=== PATIENT | female | born 1975 | race Caucasian/White ===

== ENCOUNTER 2021-11-29 13:07 | Emergency (ER) | payer OTHER ==
[~2021-11-29] VITALS: Ht 152.4 cm; Wt 63.6 kg
[2021-11-29] MEDS ORDERED: ACET-2247 PO (13:24)
[2021-11-29] MEDS ORDERED: RISP1TAB48 PO (13:24)
[2021-11-29] MEDS ORDERED: DOCU-385 PO (13:24)
[2021-11-29] MEDS ORDERED: LORA10TA7 PO (13:24)
[2021-11-29] MEDS ORDERED: LEVE500T20 PO (13:24)
[2021-11-29] MEDS ORDERED: BENZ1TAB96 PO (13:24)
[2021-11-29] MEDS ORDERED: QUET25TA PO (13:24)
[2021-11-29] MEDS ORDERED: CARB100 PO (13:24)
[2021-11-29] MEDS ORDERED: MULT-1366 PO (13:24)
[2021-11-29] MEDS ORDERED: CARB100T53 PO (13:30)
[2021-11-29] MEDS ORDERED: QUET100T PO (13:30)
[2021-11-29] MEDS ORDERED: ACETAMINOPHEN 500 MG TABLET PO ONE (14:30)
[2021-11-29 14:47] VITALS: BP 112/81
[2021-11-29] MEDS ORDERED: ACET-66 PO (16:28)
[2021-11-29] MEDS ORDERED: IBUP-2070 PO (16:28)
== END 2021-11-29 19:17 | disposition home or self-care (01) ==
LOC: EMS 13:09
DX: S82.832A Other fracture of upper and lower end of left fibula, initial encounter for closed fracture (principal); S82.52XA Displaced fracture of medial malleolus of left tibia, initial encounter for closed fracture; Z79.899 Other long term (current) drug therapy; X50.1XXA Overexertion from prolonged static or awkward postures, initial encounter; Y93.89 Activity, other specified; Y92.89 Other specified places as the place of occurrence of the external cause; Y99.8 Other external cause status
CPT/HCPCS: 29515; 99284